=== PATIENT | female | born 1980 | race African-American/Black ===

== ENCOUNTER 2019-06-20 17:27 | Emergency (ER) | payer MEDICAID, OTHER ==
[~2019-06-20] VITALS: Ht 175.3 cm; Wt 54.4 kg
[~2019-06-20 17:27] MED LIST: CEPHALEXIN500 MG ORAL; DOXYCYCLINE MO100 MG ORAL; IBUPROFEN400 MG ORAL; PENICILLIN V P500 MG ORAL; ZOFRAN4 MG ORAL
[2019-06-20 18:10] VITALS: BP 110/71
[2019-06-20] MEDS ORDERED: OFLOXACIN10 ML OP (18:47)
--- NOTE | 2019-06-20 18:47 | Emergency Room Report ---
History of Present Illness General Chief Complaint: Eye Problems Source: Patient Present Illness HPI 38-year-old female with no significant past medical history here complaining of left eye pressure. Patient appears to be intoxicated, I had to wake her up. Patient reports that she drank alcohol before coming here. Denies any drug use. Subconjunctival hemorrhage noted. Reports that went to practical nurse earlier and was told to come to an urgent care however does not realize that this is not an urgent care. Reports that 1 of her lashes got into her eye and caused little scratch. Is noncompliant with physical exam. Denies any head injury or loss of consciousness. Appears to be stable with stable vital signs per denies any travel history, fever and chills. Denies any URI symptoms. Denies blurry vision, photophobia, or wearing any contact lenses COVID-19 risk:Contact w/high r: No COVID-19 risk:Travel to affect: No Has patient experienced landa: No Allergies: Coded Allergies: No Known Allergies (Unverified , 10/30/12) Patient History Past Medical History: see triage record Past Surgical History: none Pertinent Family History: none Now: No Immunizations: UTD Reviewed Nursing Documentation: PMH: Agreed; PSxH: Agreed Nursing Documentation-PMH Hx Cardiac Problems: No - glaucoma, left knee sx Review of Systems All Other Systems: negative except mentioned in HPI Physical Exam Vital Signs Date Time Temp Pulse Resp B/P (MAP) Pulse Ox O2 Delivery O2 Flow Rate FiO2 06/20/19 17:51 97.9 92 18 103/67 (79) 96 Room Air Sp02 EP Interpretation: reviewed, normal General Appearance: no apparent distress, alert, GCS 15, non-toxic Head: normocephalic, atraumatic Eyes: left eye other - Conjunctival hemorrhage on the lateral side of left eye , possible corneal abrasion however patient has not follow-up with physical examination ENT: hearing grossly normal, normal pharynx, no angioedema, normal voice Neck: full range of motion, supple/symm/no masses Respiratory: chest non-tender, lungs clear, normal breath sounds, no rhonchi, no respiratory distress, no wheezing, speaking full sentences Cardiovascular #1: regular rate, rhythm, no edema, no murmur Gastrointestinal: normal bowel sounds, non tender, soft, non-distended, no guarding, no rebound Musculoskeletal: back normal Neurologic: alert, oriented Psychiatric: judgement/insight normal, memory normal, mood/affect normal, no suicidal/homicidal ideation Skin: no rash Lymphatic: no adenopathy Medical Decision Making PA Attestation All my diagnosis and treatment plans were reviewed ad discussed with my supervising physician Dr. Jang Diagnostic Impression: Primary Impression: Subconjunctival hemorrhage Additional Impression: Corneal abrasion ER Course 38-year-old female with no significant past medical history here complaining of left eye pressure. Patient appears to be intoxicated, I had to wake her up. Patient reports that she drank alcohol before coming here. Denies any drug use. Subconjunctival hemorrhage noted. Reports that went to practical nurse earlier and was told to come to an urgent care however does not realize that this is not an urgent care. Reports that 1 of her lashes got into her eye and caused little scratch. Is noncompliant with physical exam. Denies any head injury or loss of consciousness. Appears to be stable with stable vital signs per denies any travel history, fever and chills. Denies any URI symptoms. Denies blurry vision, photophobia, or wearing any contact lenses Ddx considered but are not limited to: bacterial conjunctivitis, allergic conjunctivitis, viral conjunctivitis, periorbital cellulitis, global trauma, corneal abrasion, subconjunctival hemorrhage Vital signs: are WNL, pt. is afebrile H&PE are most consistent with: Subconjunctival hemorrhage, possible corneal abrasion due to patient's presentation and not remembering how the eyelash got inside her eye ORDERS: Ofloxacin ophthalmic ED INTERVENTIONS: None required at this time. DISCHARGE: At this time pt. is stable for d/c to home. Will provide printed patient care instructions, and any necessary prescriptions. Care plan and follow up instructions have been discussed with the patient prior to discharge. Follow-up with interactive producer, if worsening symptoms return to emergency room. Able to make judgment, intoxication is not to the level that needs further evaluation Last Vital Signs Date Time Temp Pulse Resp B/P (MAP) Pulse Ox O2 Delivery O2 Flow Rate FiO2 06/20/19 17:51 97.9 92 18 103/67 (79) 96 Room Air Disposition: HOME, SELF-CARE Condition: Stable Scripts Ofloxacin (Ofloxacin) 5 Ml Drops 2 DROP OP Q6HR for 7 Days, #5 ML Prov: Carine Patel 06/20/19 Patient Instructions: Corneal Abrasion, [id number], Subconjunctival Hemorrhage Additional Instructions: Follow-up with interactive producer Carine Patel Jun 20, 2019 18:47
[2019-06-20 19:14] VITALS: BP 115/78
== END 2019-06-20 19:14 | disposition home or self-care (01) ==
LOC: EMR 18:38
DX: S05.02XA Injury of conjunctiva and corneal abrasion without foreign body, left eye, initial encounter (principal); X58.XXXA Exposure to other specified factors, initial encounter; Y93.9 Activity, unspecified; Y92.9 Unspecified place or not applicable
CPT/HCPCS: 99282